=== PATIENT | male | born 1940 | race Caucasian/White ===

== ENCOUNTER 2020-07-22 01:19 | Inpatient (IN) ==
[2020-07-22 02:26] LABS: Mean Corpuscular Hemoglobin 31.4 pg (28.0-33.3)
[2020-07-22 02:27] LABS: Basophils % 0.3 %; Eosinophils # 0.2 K/mcL (0.0-0.6); Hematocrit 45.1 % (37.5-50.1); Hemoglobin 14.4 g/dL (12.9-16.9); Immature Granulocytes % 0.8 % (0-4); Immature Platelets 4.2 % (1.1-6.1); Lymphocytes # 1.6 K/mcL (0.6-4.6); Lymphocytes % 18.4 %; Mean Corpuscular HGB Conc 31.9 g/dL (31.6-35.5); Mean Corpuscular Volume 98.3 fL (83.0-100.0); Mean Platelet Volume 10.1 fL (9.4-12.4); Monocytes # 0.8 K/mcL (0.0-1.3); Monocytes % 9.4 %; Platelet Count 112 K/mcL (140-400); Red Blood Count 4.59 M/mcL (4.19-5.50); Red Cell Distribution Width 14.8 % (11.5-14.5); Segmented Neutrophils % 69.1 %; White Blood Count 8.7 K/mcL (4.3-11.1)
[2020-07-22 02:43] LABS: Alanine Aminotransferase 12 Units/L (7-52); Albumin 3.5 g/dL (3.5-5.7); Albumin/Globulin Ratio 1.3 (1.1-2.2); Alkaline Phosphatase 44 Units/L (34-104); Aspartate Amino Transferase 12 Units/L (13-39); BUN/Creatinine Ratio 15 (6-26); Bilirubin,Total 0.5 mg/dL (0.3-1.0); Blood Urea Nitrogen 12 mg/dL (8-23); Calcium 8.9 mg/dL (8.6-10.3); Carbon Dioxide 33 mEq/L (23-29); Chloride 107 mEq/L (98-107); Globulin 2.7 g/dL (2.4-3.5); Glucose 103 mg/dL (70-105); Osmolality,Calculated 294 (280-300); Potassium 4.3 mEq/L (3.5-5.1); Sodium 142 mEq/L (136-145); Total Protein 6.2 g/dL (6.4-8.9); eGFR For African Americans > 60 (> 60); eGFR For Non-African Americans > 60 (> 60)
[2020-07-22 02:44] LABS: Troponin I < 0.03 ng/mL (< 0.04)
[2020-07-22] MEDS ORDERED: methylPREDNISolone 125 MG/2 ML VIAL IVP ONE (03:12)
[2020-07-22] MEDS ORDERED: Ipratropium/Albuterol Neb 3 ML IH ONE (03:12)
[2020-07-22] MEDS ORDERED: cefTRIAXone 1,000 MG in Water for inj. (sterile) 10 ML IVP ONE (05:12)
[2020-07-22] MEDS ORDERED: Azithromycin 500 MG in 0.9 % Sodium Chloride 250 ML IVPB ONE (05:12)
[2020-07-22] MEDS ORDERED: Naloxone 0.4 MG/ML INJ IVP PRN (07:35)
[2020-07-22] MEDS ORDERED: Ipratropium/Albuterol Neb 3 ML IH PRN (07:38)
[2020-07-22 07:51] LABS: Bilirubin,Urine Negative (Negative); Blood,Urine Negative (Negative); Clarity,Urine Clear (Clear); Color,Urine Light-Yellow (Yellow); Glucose,Urine (UA) Normal (Normal); Ketones,Urine Negative (Negative); Leukocyte Esterase,Urine Negative (Negative); Nitrite,Urine Negative (Negative); Protein,Urine Negative (Neg-Trace); Specific Gravity,Urine 1.014 (1.010-1.025); Urobilinogen,Urine Normal (Normal)
[2020-07-22] MEDS: Spironolactone 25 MG TABLET PO SCH (08:28)
[2020-07-22] MEDS: Finasteride 5 MG TABLET PO SCH (08:29)
[2020-07-22] MEDS: carvediloL 6.25 MG TABLET PO SCH ×2 (08:29→16:42)
[2020-07-22] MEDS: Gabapentin 300 MG CAPSULE PO SCH ×2 (08:29→21:07)
[2020-07-22] MEDS: Primidone 50 MG TABLET PO SCH ×2 (08:29→21:07)
[2020-07-22] MEDS: OLANZapine 5 MG TAB.RAPDIS PO SCH ×2 (08:30→21:06)
[2020-07-22] MEDS: Mirtazapine 15 MG TABLET PO SCH (08:30)
[2020-07-22] MEDS: Nitroglycerin 0.2 MG PATCH.TD24 TD SCH (08:43)
[2020-07-22] MEDS: Nitroglycerin 0.4 MG PATCH.TD24 TD SCH (08:44)
[2020-07-22] MEDS ORDERED: NITROGLYCERIN 0.6 MG TD SCH (09:00)
[2020-07-22] MEDS: Ipratropium 1 PUFF INHALER IH SCH ×3 (10:01→15:21)
[2020-07-22] MEDS: *HR* Heparin 5,000 UNIT/ML VIAL SQ SCH ×2 (15:16→21:06)
[2020-07-23] MEDS: Ipratropium 1 PUFF INHALER IH SCH ×5 (00:19→21:38)
[2020-07-23] MEDS: *HR* Heparin 5,000 UNIT/ML VIAL SQ SCH ×3 (04:38→20:48)
[2020-07-23 04:44] LABS: Basophils % 0.1 %; Hematocrit 42.4 % (37.5-50.1); Hemoglobin 13.8 g/dL (12.9-16.9); Immature Granulocytes % 0.7 % (0-4); Lymphocytes # 1.2 K/mcL (0.6-4.6); Lymphocytes % 10.9 %; Mean Corpuscular HGB Conc 32.5 g/dL (31.6-35.5); Mean Corpuscular Hemoglobin 31.3 pg (28.0-33.3); Mean Corpuscular Volume 96.1 fL (83.0-100.0); Mean Platelet Volume 10.2 fL (9.4-12.4); Monocytes # 0.8 K/mcL (0.0-1.3); Monocytes % 7.1 %; Neutrophils # 9.1 K/mcL (1.6-8.9); Platelet Count 113 K/mcL (140-400); Red Blood Count 4.41 M/mcL (4.19-5.50); Red Cell Distribution Width 14.2 % (11.5-14.5); Segmented Neutrophils % 81.2 %; White Blood Count 11.2 K/mcL (4.3-11.1)
[2020-07-23 04:54] LABS: BUN/Creatinine Ratio 24 (6-26); Blood Urea Nitrogen 18 mg/dL (8-23); Calcium 8.8 mg/dL (8.6-10.3); Carbon Dioxide 30 mEq/L (23-29); Chloride 106 mEq/L (98-107); Glucose 118 mg/dL (70-105); Osmolality,Calculated 289 (280-300); Potassium 4.5 mEq/L (3.5-5.1); Sodium 138 mEq/L (136-145); eGFR For African Americans > 60 (> 60); eGFR For Non-African Americans > 60 (> 60)
[2020-07-23] MEDS: OLANZapine 5 MG TAB.RAPDIS PO SCH ×2 (07:54→20:48)
[2020-07-23] MEDS: carvediloL 6.25 MG TABLET PO SCH ×2 (07:56→15:36)
[2020-07-23] MEDS: Mirtazapine 15 MG TABLET PO SCH (07:56)
[2020-07-23] MEDS: Nitroglycerin 0.4 MG PATCH.TD24 TD SCH (07:57)
[2020-07-23] MEDS: Nitroglycerin 0.2 MG PATCH.TD24 TD SCH (07:58)
[2020-07-23] MEDS: Spironolactone 25 MG TABLET PO SCH (08:00)
[2020-07-23] MEDS: MethylPREDNISolone 40 MG/ML VIAL IVP SCH ×3 (08:00→23:24)
[2020-07-23] MEDS: Finasteride 5 MG TABLET PO SCH (08:00)
[2020-07-23] MEDS: Primidone 50 MG TABLET PO SCH ×2 (08:01→20:49)
[2020-07-23] MEDS: Gabapentin 300 MG CAPSULE PO SCH ×2 (08:01→20:49)
[2020-07-23] MEDS: Azithromycin 500 MG in 0.9 % Sodium Chloride 250 ML IVPB SCH (08:05)
[2020-07-23] MEDS ORDERED: Furosemide 20 MG/2 ML VIAL IVP ONE (08:13)
[2020-07-23] MEDS: Budesonide/Formoterol 160/4.5 1 PUFF INH IH SCH ×2 (10:22→21:39)
[2020-07-23] MEDS: Famotidine 20 MG TABLET PO PRN (20:49)
[2020-07-23] MEDS: Nitroglycerin 0.4 MG TAB.SUBL SL PRN ×3 (20:50→21:19)
[2020-07-23] MEDS ORDERED: Benzonatate 100 MG CAPSULE PO PRN (21:44)
[2020-07-23 22:14] LABS: Alanine Aminotransferase 13 Units/L (7-52); Albumin 3.3 g/dL (3.5-5.7); Albumin/Globulin Ratio 1.3 (1.1-2.2); Alkaline Phosphatase 40 Units/L (34-104); Aspartate Amino Transferase 15 Units/L (13-39); BUN/Creatinine Ratio 28 (6-26); Bilirubin,Total 0.4 mg/dL (0.3-1.0); Blood Urea Nitrogen 26 mg/dL (8-23); Calcium 8.7 mg/dL (8.6-10.3); Carbon Dioxide 27 mEq/L (23-29); Chloride 102 mEq/L (98-107); Globulin 2.5 g/dL (2.4-3.5); Glucose 253 mg/dL (70-105); Osmolality,Calculated 299 (280-300); Potassium 4.7 mEq/L (3.5-5.1); Sodium 138 mEq/L (136-145); Total Protein 5.8 g/dL (6.4-8.9); Troponin I < 0.03 ng/mL (< 0.04); eGFR For African Americans > 60 (> 60); eGFR For Non-African Americans > 60 (> 60)
[2020-07-23 22:33] LABS: Hematocrit 40.7 % (37.5-50.1); Hemoglobin 13.3 g/dL (12.9-16.9); Immature Platelets 4.8 % (1.1-6.1); Mean Corpuscular HGB Conc 32.7 g/dL (31.6-35.5); Mean Corpuscular Hemoglobin 31.4 pg (28.0-33.3); Mean Platelet Volume 10.7 fL (9.4-12.4); Red Blood Count 4.24 M/mcL (4.19-5.50); Red Cell Distribution Width 14.3 % (11.5-14.5); White Blood Count 9.1 K/mcL (4.3-11.1)
[2020-07-24 02:58] LABS: Basophils % 0.1 %; Hematocrit 40.9 % (37.5-50.1); Hemoglobin 13.3 g/dL (12.9-16.9); Immature Granulocytes % 0.6 % (0-4); Lymphocytes # 0.9 K/mcL (0.6-4.6); Mean Corpuscular HGB Conc 32.5 g/dL (31.6-35.5); Mean Corpuscular Volume 95.3 fL (83.0-100.0); Mean Platelet Volume 10.3 fL (9.4-12.4); Monocytes # 0.3 K/mcL (0.0-1.3); Monocytes % 2.8 %; Neutrophils # 9.6 K/mcL (1.6-8.9); Platelet Count 123 K/mcL (140-400); Red Blood Count 4.29 M/mcL (4.19-5.50); Red Cell Distribution Width 14.1 % (11.5-14.5); Segmented Neutrophils % 88.5 %; White Blood Count 10.9 K/mcL (4.3-11.1)
[2020-07-24 03:12] LABS: BUN/Creatinine Ratio 27 (6-26); Blood Urea Nitrogen 23 mg/dL (8-23); Calcium 8.9 mg/dL (8.6-10.3); Carbon Dioxide 28 mEq/L (23-29); Chloride 104 mEq/L (98-107); Glucose 167 mg/dL (70-105); Osmolality,Calculated 293 (280-300); Potassium 4.6 mEq/L (3.5-5.1); Sodium 138 mEq/L (136-145); eGFR For African Americans > 60 (> 60); eGFR For Non-African Americans > 60 (> 60)
[2020-07-24] MEDS: Ipratropium 1 PUFF INHALER IH SCH (03:50)
[2020-07-24] MEDS: *HR* Heparin 5,000 UNIT/ML VIAL SQ SCH ×3 (05:22→21:00)
[2020-07-24] MEDS: Nitroglycerin 0.2 MG PATCH.TD24 TD SCH (08:04)
[2020-07-24] MEDS: Nitroglycerin 0.4 MG PATCH.TD24 TD SCH (08:05)
[2020-07-24] MEDS: Finasteride 5 MG TABLET PO SCH (08:05)
[2020-07-24] MEDS: Mirtazapine 15 MG TABLET PO SCH (08:05)
[2020-07-24] MEDS: Primidone 50 MG TABLET PO SCH ×2 (08:05→21:00)
[2020-07-24] MEDS: Gabapentin 300 MG CAPSULE PO SCH ×2 (08:05→21:00)
[2020-07-24] MEDS: OLANZapine 5 MG TAB.RAPDIS PO SCH ×2 (08:05→20:59)
[2020-07-24] MEDS: Spironolactone 25 MG TABLET PO SCH (08:05)
[2020-07-24] MEDS: Azithromycin 500 MG in 0.9 % Sodium Chloride 250 ML IVPB SCH (08:06)
[2020-07-24] MEDS: MethylPREDNISolone 40 MG/ML VIAL IVP SCH ×2 (08:06→15:02)
[2020-07-24] MEDS: carvediloL 6.25 MG TABLET PO SCH ×2 (08:06→17:00)
[2020-07-24] MEDS: Acetylcysteine 10% 2 ML INHSOL IH SCH ×3 (12:03→19:52)
[2020-07-24] MEDS: Ipratropium/Albuterol Neb 3 ML IH SCH ×5 (12:03→23:23)
[2020-07-24] MEDS: Budesonide/Formoterol 160/4.5 1 PUFF INH IH SCH ×2 (12:04→19:52)
[2020-07-24] MEDS: Furosemide 20 MG/2 ML VIAL IVP SCH (17:00)
[2020-07-25] MEDS: MethylPREDNISolone 40 MG/ML VIAL IVP SCH ×3 (00:27→15:49)
[2020-07-25] MEDS: Ipratropium/Albuterol Neb 3 ML IH SCH ×6 (04:06→23:42)
[2020-07-25] MEDS: Acetylcysteine 10% 2 ML INHSOL IH SCH ×4 (04:06→19:34)
[2020-07-25] MEDS: *HR* Heparin 5,000 UNIT/ML VIAL SQ SCH ×3 (04:58→20:02)
[2020-07-25 05:36] LABS: Basophils % 0.1 %; Hematocrit 41.2 % (37.5-50.1); Hemoglobin 13.4 g/dL (12.9-16.9); Immature Granulocytes % 0.7 % (0-4); Lymphocytes # 0.8 K/mcL (0.6-4.6); Lymphocytes % 6.3 %; Mean Corpuscular HGB Conc 32.5 g/dL (31.6-35.5); Mean Corpuscular Hemoglobin 31.5 pg (28.0-33.3); Mean Corpuscular Volume 96.9 fL (83.0-100.0); Mean Platelet Volume 10.6 fL (9.4-12.4); Monocytes # 0.4 K/mcL (0.0-1.3); Monocytes % 3.6 %; Neutrophils # 10.6 K/mcL (1.6-8.9); Platelet Count 121 K/mcL (140-400); Red Blood Count 4.25 M/mcL (4.19-5.50); Red Cell Distribution Width 14.2 % (11.5-14.5); Segmented Neutrophils % 89.3 %; White Blood Count 11.9 K/mcL (4.3-11.1)
[2020-07-25 05:48] LABS: BUN/Creatinine Ratio 32 (6-26); Blood Urea Nitrogen 30 mg/dL (8-23); Calcium 8.9 mg/dL (8.6-10.3); Carbon Dioxide 29 mEq/L (23-29); Chloride 102 mEq/L (98-107); Glucose 172 mg/dL (70-105); Osmolality,Calculated 298 (280-300); Sodium 139 mEq/L (136-145); Troponin I 0.03 ng/mL (< 0.04); eGFR For African Americans > 60 (> 60); eGFR For Non-African Americans > 60 (> 60)
[2020-07-25] MEDS: Budesonide/Formoterol 160/4.5 1 PUFF INH IH SCH ×2 (07:45→19:35)
[2020-07-25] MEDS: Furosemide 20 MG/2 ML VIAL IVP SCH ×2 (09:18→15:49)
[2020-07-25] MEDS: Nitroglycerin 0.2 MG PATCH.TD24 TD SCH (09:18)
[2020-07-25] MEDS: OLANZapine 5 MG TAB.RAPDIS PO SCH ×2 (09:19→20:03)
[2020-07-25] MEDS: carvediloL 6.25 MG TABLET PO SCH ×2 (09:19→15:49)
[2020-07-25] MEDS: Gabapentin 300 MG CAPSULE PO SCH ×2 (09:19→20:03)
[2020-07-25] MEDS: Azithromycin 500 MG in 0.9 % Sodium Chloride 250 ML IVPB SCH (09:19)
[2020-07-25] MEDS: Nitroglycerin 0.4 MG PATCH.TD24 TD SCH (09:19)
[2020-07-25] MEDS: Mirtazapine 15 MG TABLET PO SCH (09:20)
[2020-07-25] MEDS: Primidone 50 MG TABLET PO SCH ×2 (09:20→20:03)
[2020-07-25] MEDS: Finasteride 5 MG TABLET PO SCH (09:20)
[2020-07-25] MEDS: Spironolactone 25 MG TABLET PO SCH (09:20)
[2020-07-26] MEDS: MethylPREDNISolone 40 MG/ML VIAL IVP SCH ×3 (00:13→17:06)
[2020-07-26] MEDS: Acetylcysteine 10% 2 ML INHSOL IH SCH ×4 (04:06→19:58)
[2020-07-26] MEDS: Ipratropium/Albuterol Neb 3 ML IH SCH ×6 (04:06→23:05)
[2020-07-26] MEDS: *HR* Heparin 5,000 UNIT/ML VIAL SQ SCH ×3 (05:24→20:15)
[2020-07-26 05:45] LABS: Basophils % 0.2 %; Hematocrit 45.4 % (37.5-50.1); Hemoglobin 14.9 g/dL (12.9-16.9); Immature Granulocytes % 0.9 % (0-4); Lymphocytes # 0.6 K/mcL (0.6-4.6); Mean Corpuscular HGB Conc 32.8 g/dL (31.6-35.5); Mean Corpuscular Volume 97.4 fL (83.0-100.0); Mean Platelet Volume 10.5 fL (9.4-12.4); Monocytes # 0.4 K/mcL (0.0-1.3); Neutrophils # 10.6 K/mcL (1.6-8.9); Platelet Count 125 K/mcL (140-400); Red Blood Count 4.66 M/mcL (4.19-5.50); Red Cell Distribution Width 14.1 % (11.5-14.5); Segmented Neutrophils % 90.9 %; White Blood Count 11.7 K/mcL (4.3-11.1)
[2020-07-26 06:04] LABS: BUN/Creatinine Ratio 30 (6-26); Blood Urea Nitrogen 31 mg/dL (8-23); Calcium 9.1 mg/dL (8.6-10.3); Carbon Dioxide 33 mEq/L (23-29); Chloride 99 mEq/L (98-107); Glucose 151 mg/dL (70-105); Osmolality,Calculated 295 (280-300); Sodium 138 mEq/L (136-145); eGFR For African Americans > 60 (> 60); eGFR For Non-African Americans > 60 (> 60)
[2020-07-26] MEDS: Budesonide/Formoterol 160/4.5 1 PUFF INH IH SCH ×2 (07:35→19:58)
[2020-07-26] MEDS: Azithromycin 500 MG in 0.9 % Sodium Chloride 250 ML IVPB SCH (08:01)
[2020-07-26] MEDS: Furosemide 20 MG/2 ML VIAL IVP SCH ×2 (08:01→17:06)
[2020-07-26] MEDS: Primidone 50 MG TABLET PO SCH ×2 (08:02→20:16)
[2020-07-26] MEDS: Mirtazapine 15 MG TABLET PO SCH (08:03)
[2020-07-26] MEDS: Finasteride 5 MG TABLET PO SCH (08:03)
[2020-07-26] MEDS: OLANZapine 5 MG TAB.RAPDIS PO SCH ×2 (08:03→20:15)
[2020-07-26] MEDS: Spironolactone 25 MG TABLET PO SCH (08:03)
[2020-07-26] MEDS: Gabapentin 300 MG CAPSULE PO SCH ×2 (08:03→20:15)
[2020-07-26] MEDS: carvediloL 6.25 MG TABLET PO SCH ×2 (08:03→17:05)
[2020-07-26] MEDS: Nitroglycerin 0.2 MG PATCH.TD24 TD SCH (08:04)
[2020-07-26] MEDS: Nitroglycerin 0.4 MG PATCH.TD24 TD SCH (08:04)
[2020-07-26] MEDS ORDERED: Melatonin 3 MG TABLET PO PRN (18:35)
[2020-07-26] MEDS: Artificial Tears SOLN 15 ML BOTTLE BOTH EYES SCH (20:15)
[2020-07-26] MEDS: Saline Nasal Spray 44 ML BOTTLE NS PRN (20:15)
[2020-07-27 02:12] LABS: Hematocrit 44.2 % (37.5-50.1); Hemoglobin 14.1 g/dL (12.9-16.9); Mean Corpuscular HGB Conc 31.9 g/dL (31.6-35.5); Mean Corpuscular Hemoglobin 30.9 pg (28.0-33.3); Mean Corpuscular Volume 96.7 fL (83.0-100.0); Mean Platelet Volume 10.7 fL (9.4-12.4); Platelet Count 123 K/mcL (140-400); Red Blood Count 4.57 M/mcL (4.19-5.50); White Blood Count 11.6 K/mcL (4.3-11.1)
[2020-07-27 02:30] LABS: BUN/Creatinine Ratio 34 (6-26); Blood Urea Nitrogen 35 mg/dL (8-23); Carbon Dioxide 32 mEq/L (23-29); Chloride 100 mEq/L (98-107); Glucose 144 mg/dL (70-105); Magnesium 2.3 mg/dL (1.6-2.6); Osmolality,Calculated 297 (280-300); Phosphorous 3.2 mg/dL (2.7-4.5); Potassium 4.4 mEq/L (3.5-5.1); Sodium 138 mEq/L (136-145); eGFR For African Americans > 60 (> 60); eGFR For Non-African Americans > 60 (> 60)
[2020-07-27] MEDS: Ipratropium/Albuterol Neb 3 ML IH SCH ×6 (03:50→23:41)
[2020-07-27] MEDS: MethylPREDNISolone 40 MG/ML VIAL IVP SCH ×2 (05:13→16:53)
[2020-07-27] MEDS: *HR* Heparin 5,000 UNIT/ML VIAL SQ SCH ×3 (05:14→20:35)
[2020-07-27] MEDS: Budesonide/Formoterol 160/4.5 1 PUFF INH IH SCH ×2 (07:42→19:37)
[2020-07-27] MEDS: Acetylcysteine 10% 2 ML INHSOL IH SCH ×3 (07:42→19:36)
[2020-07-27] MEDS: Furosemide 20 MG/2 ML VIAL IVP SCH ×2 (08:43→16:53)
[2020-07-27] MEDS: Multivit/Ca/Min/Fe/FA 1 TAB TABLET PO SCH (08:43)
[2020-07-27] MEDS: OLANZapine 5 MG TAB.RAPDIS PO SCH ×2 (08:44→20:35)
[2020-07-27] MEDS: Primidone 50 MG TABLET PO SCH ×2 (08:44→20:35)
[2020-07-27] MEDS: Finasteride 5 MG TABLET PO SCH (08:44)
[2020-07-27] MEDS: Azithromycin 250 MG TABLET PO SCH (08:44)
[2020-07-27] MEDS: Gabapentin 300 MG CAPSULE PO SCH ×2 (08:44→20:35)
[2020-07-27] MEDS: Spironolactone 25 MG TABLET PO SCH (08:44)
[2020-07-27] MEDS: Mirtazapine 15 MG TABLET PO SCH (08:45)
[2020-07-27] MEDS: Nitroglycerin 0.2 MG PATCH.TD24 TD SCH (08:45)
[2020-07-27] MEDS: carvediloL 6.25 MG TABLET PO SCH ×2 (08:45→16:53)
[2020-07-27] MEDS: Nitroglycerin 0.4 MG PATCH.TD24 TD SCH (08:45)
[2020-07-27] MEDS: Artificial Tears SOLN 15 ML BOTTLE BOTH EYES SCH ×2 (08:46→20:35)
[2020-07-27] MEDS: Saline Nasal Spray 44 ML BOTTLE NS PRN (20:36)
[2020-07-28] MEDS ORDERED: polyethylene glycoL 3350 17 GM POWD.PACK PO PRN (03:33)
[2020-07-28] MEDS: Ipratropium/Albuterol Neb 3 ML IH SCH ×6 (03:39→23:19)
[2020-07-28] MEDS: Acetylcysteine 10% 2 ML INHSOL IH SCH ×4 (03:39→19:59)
[2020-07-28 04:16] LABS: Hematocrit 45.8 % (37.5-50.1); Hemoglobin 14.7 g/dL (12.9-16.9); Mean Corpuscular HGB Conc 32.1 g/dL (31.6-35.5); Mean Corpuscular Hemoglobin 30.3 pg (28.0-33.3); Mean Corpuscular Volume 94.4 fL (83.0-100.0); Mean Platelet Volume 10.6 fL (9.4-12.4); Platelet Count 107 K/mcL (140-400); Red Blood Count 4.85 M/mcL (4.19-5.50); Red Cell Distribution Width 13.9 % (11.5-14.5); White Blood Count 16.4 K/mcL (4.3-11.1)
[2020-07-28 04:26] LABS: BUN/Creatinine Ratio 42 (6-26); Blood Urea Nitrogen 37 mg/dL (8-23); Calcium 8.9 mg/dL (8.6-10.3); Carbon Dioxide 32 mEq/L (23-29); Chloride 98 mEq/L (98-107); Glucose 152 mg/dL (70-105); Magnesium 2.3 mg/dL (1.6-2.6); Osmolality,Calculated 296 (280-300); Phosphorous 3.6 mg/dL (2.7-4.5); Potassium 4.3 mEq/L (3.5-5.1); Sodium 137 mEq/L (136-145); eGFR For African Americans > 60 (> 60); eGFR For Non-African Americans > 60 (> 60)
[2020-07-28] MEDS: *HR* Heparin 5,000 UNIT/ML VIAL SQ SCH ×3 (05:12→21:04)
[2020-07-28] MEDS: Budesonide/Formoterol 160/4.5 1 PUFF INH IH SCH ×2 (07:54→20:09)
[2020-07-28] MEDS ORDERED: predniSONE 20 MG TABLET PO SCH (09:00)
[2020-07-28] MEDS: MethylPREDNISolone 40 MG/ML VIAL IVP SCH ×2 (09:36→16:51)
[2020-07-28] MEDS: Furosemide 20 MG/2 ML VIAL IVP SCH ×2 (09:36→16:52)
[2020-07-28] MEDS: Nitroglycerin 0.4 MG PATCH.TD24 TD SCH (09:36)
[2020-07-28] MEDS: Nitroglycerin 0.2 MG PATCH.TD24 TD SCH (09:36)
[2020-07-28] MEDS: Multivit/Ca/Min/Fe/FA 1 TAB TABLET PO SCH (09:37)
[2020-07-28] MEDS: carvediloL 6.25 MG TABLET PO SCH ×2 (09:37→16:52)
[2020-07-28] MEDS: Spironolactone 25 MG TABLET PO SCH (09:37)
[2020-07-28] MEDS: OLANZapine 5 MG TAB.RAPDIS PO SCH ×2 (09:37→21:04)
[2020-07-28] MEDS: Azithromycin 250 MG TABLET PO SCH (09:37)
[2020-07-28] MEDS: Gabapentin 300 MG CAPSULE PO SCH ×2 (09:37→21:05)
[2020-07-28] MEDS: Mirtazapine 15 MG TABLET PO SCH (09:37)
[2020-07-28] MEDS: Finasteride 5 MG TABLET PO SCH (09:38)
[2020-07-28] MEDS: Primidone 50 MG TABLET PO SCH ×2 (09:38→21:05)
[2020-07-28] MEDS: Artificial Tears SOLN 15 ML BOTTLE BOTH EYES SCH ×2 (09:38→21:05)
[2020-07-28] MEDS: Famotidine 20 MG TABLET PO PRN (12:02)
[2020-07-28] MEDS ORDERED: Perflutren Lipid Microsphere 1.3 ML in 0.9 % Sodium Chloride 8.7 ML IVP PRN (16:11)
[2020-07-29] MEDS: Ipratropium/Albuterol Neb 3 ML IH SCH ×7 (03:35→22:43)
[2020-07-29] MEDS: Acetylcysteine 10% 2 ML INHSOL IH SCH ×4 (03:35→22:43)
[2020-07-29] MEDS: MethylPREDNISolone 40 MG/ML VIAL IVP SCH ×2 (05:28→17:07)
[2020-07-29] MEDS: *HR* Heparin 5,000 UNIT/ML VIAL SQ SCH ×2 (05:28→14:26)
[2020-07-29 05:54] LABS: Basophils % 0.2 %; Hematocrit 48.1 % (37.5-50.1); Hemoglobin 15.4 g/dL (12.9-16.9); Immature Granulocytes % 1.4 % (0-4); Lymphocytes # 0.6 K/mcL (0.6-4.6); Lymphocytes % 3.8 %; Mean Corpuscular Hemoglobin 30.1 pg (28.0-33.3); Mean Corpuscular Volume 94.1 fL (83.0-100.0); Mean Platelet Volume 11.1 fL (9.4-12.4); Monocytes # 0.8 K/mcL (0.0-1.3); Monocytes % 5.2 %; Platelet Count 105 K/mcL (140-400); Red Blood Count 5.11 M/mcL (4.19-5.50); Red Cell Distribution Width 13.7 % (11.5-14.5); Segmented Neutrophils % 89.4 %; White Blood Count 14.6 K/mcL (4.3-11.1)
[2020-07-29 06:10] LABS: BUN/Creatinine Ratio 45 (6-26); Blood Urea Nitrogen 42 mg/dL (8-23); Carbon Dioxide 33 mEq/L (23-29); Chloride 96 mEq/L (98-107); Glucose 114 mg/dL (70-105); Magnesium 2.6 mg/dL (1.6-2.6); Osmolality,Calculated 293 (280-300); Phosphorous 3.4 mg/dL (2.7-4.5); Potassium 4.4 mEq/L (3.5-5.1); Sodium 136 mEq/L (136-145); eGFR For African Americans > 60 (> 60); eGFR For Non-African Americans > 60 (> 60)
[2020-07-29] MEDS: Multivit/Ca/Min/Fe/FA 1 TAB TABLET PO SCH (07:43)
[2020-07-29] MEDS: Spironolactone 25 MG TABLET PO SCH (07:43)
[2020-07-29] MEDS: OLANZapine 5 MG TAB.RAPDIS PO SCH (07:43)
[2020-07-29] MEDS: Azithromycin 250 MG TABLET PO SCH (07:43)
[2020-07-29] MEDS: Primidone 50 MG TABLET PO SCH (07:43)
[2020-07-29] MEDS: Gabapentin 300 MG CAPSULE PO SCH (07:43)
[2020-07-29] MEDS: Finasteride 5 MG TABLET PO SCH (07:44)
[2020-07-29] MEDS: Mirtazapine 15 MG TABLET PO SCH (07:44)
[2020-07-29] MEDS: carvediloL 6.25 MG TABLET PO SCH ×2 (07:44→17:06)
[2020-07-29] MEDS: Nitroglycerin 0.2 MG PATCH.TD24 TD SCH (07:45)
[2020-07-29] MEDS: Furosemide 20 MG/2 ML VIAL IVP SCH ×2 (07:45→17:06)
[2020-07-29] MEDS: Nitroglycerin 0.4 MG PATCH.TD24 TD SCH (07:45)
[2020-07-29] MEDS: Artificial Tears SOLN 15 ML BOTTLE BOTH EYES SCH (07:55)
[2020-07-29] MEDS: Budesonide/Formoterol 160/4.5 1 PUFF INH IH SCH ×2 (08:27→22:43)
[2020-07-29] MEDS ORDERED: Ipratropium/Albuterol Neb 3 ML IH PRN (18:22)
[2020-07-30] MEDS: Gabapentin 300 MG CAPSULE PO SCH ×3 (00:21→20:51)
[2020-07-30] MEDS: OLANZapine 5 MG TAB.RAPDIS PO SCH ×3 (00:22→20:51)
[2020-07-30] MEDS: Artificial Tears SOLN 15 ML BOTTLE BOTH EYES SCH ×3 (00:32→20:51)
[2020-07-30] MEDS: Primidone 50 MG TABLET PO SCH ×3 (00:34→20:51)
[2020-07-30 01:15] LABS: Basophils # 0.1 K/mcL (0.0-0.2); Basophils % 0.5 %; Hematocrit 47.6 % (37.5-50.1); Hemoglobin 15.8 g/dL (12.9-16.9); Lymphocytes # 0.5 K/mcL (0.6-4.6); Lymphocytes % 4.1 %; Mean Corpuscular HGB Conc 33.2 g/dL (31.6-35.5); Mean Corpuscular Hemoglobin 31.3 pg (28.0-33.3); Mean Corpuscular Volume 94.3 fL (83.0-100.0); Monocytes # 0.6 K/mcL (0.0-1.3); Monocytes % 4.5 %; Neutrophils # 11.7 K/mcL (1.6-8.9); Platelet Count 107 K/mcL (140-400); Red Blood Count 5.05 M/mcL (4.19-5.50); Red Cell Distribution Width 13.6 % (11.5-14.5); Segmented Neutrophils % 88.9 %; White Blood Count 13.2 K/mcL (4.3-11.1)
[2020-07-30 01:30] LABS: BUN/Creatinine Ratio 51 (6-26); Blood Urea Nitrogen 45 mg/dL (8-23); Carbon Dioxide 31 mEq/L (23-29); Chloride 94 mEq/L (98-107); Glucose 137 mg/dL (70-105); Magnesium 2.3 mg/dL (1.6-2.6); Osmolality,Calculated 288 (280-300); Phosphorous 2.9 mg/dL (2.7-4.5); Potassium 4.6 mEq/L (3.5-5.1); Sodium 132 mEq/L (136-145); eGFR For African Americans > 60 (> 60); eGFR For Non-African Americans > 60 (> 60)
[2020-07-30] MEDS: Ipratropium/Albuterol Neb 3 ML IH SCH ×6 (03:06→22:55)
[2020-07-30] MEDS: Acetylcysteine 10% 2 ML INHSOL IH SCH ×4 (03:06→22:53)
[2020-07-30] MEDS: *HR* Enoxaparin 40 MG/0.4 ML SYRINGE SQ SCH (06:59)
[2020-07-30] MEDS: Spironolactone 25 MG TABLET PO SCH (08:01)
[2020-07-30] MEDS: Finasteride 5 MG TABLET PO SCH (08:02)
[2020-07-30] MEDS: Multivit/Ca/Min/Fe/FA 1 TAB TABLET PO SCH (08:02)
[2020-07-30] MEDS: Azithromycin 250 MG TABLET PO SCH (08:03)
[2020-07-30] MEDS: Mirtazapine 15 MG TABLET PO SCH (08:03)
[2020-07-30] MEDS: Nitroglycerin 0.4 MG PATCH.TD24 TD SCH (08:04)
[2020-07-30] MEDS: carvediloL 6.25 MG TABLET PO SCH ×2 (08:04→17:22)
[2020-07-30] MEDS: Nitroglycerin 0.2 MG PATCH.TD24 TD SCH (08:04)
[2020-07-30] MEDS: Budesonide/Formoterol 160/4.5 1 PUFF INH IH SCH ×2 (08:19→22:54)
[2020-07-30] MEDS ORDERED: MethylPREDNISolone 40 MG/ML VIAL IVP SCH (09:00)
[2020-07-31] MEDS: Acetylcysteine 10% 2 ML INHSOL IH SCH ×4 (03:26→19:43)
[2020-07-31] MEDS: Ipratropium/Albuterol Neb 3 ML IH SCH ×6 (03:27→23:12)
[2020-07-31] MEDS: *HR* Enoxaparin 40 MG/0.4 ML SYRINGE SQ SCH (05:23)
[2020-07-31 05:44] LABS: Basophils # 0.1 K/mcL (0.0-0.2); Basophils % 0.5 %; Eosinophils % 0.1 %; Hematocrit 48.8 % (37.5-50.1); Hemoglobin 15.8 g/dL (12.9-16.9); Immature Granulocytes % 2.6 % (0-4); Lymphocytes # 0.7 K/mcL (0.6-4.6); Lymphocytes % 6.3 %; Mean Corpuscular HGB Conc 32.4 g/dL (31.6-35.5); Mean Corpuscular Hemoglobin 30.9 pg (28.0-33.3); Mean Corpuscular Volume 95.3 fL (83.0-100.0); Mean Platelet Volume 11.5 fL (9.4-12.4); Monocytes # 0.9 K/mcL (0.0-1.3); Monocytes % 7.3 %; Red Blood Count 5.12 M/mcL (4.19-5.50); Red Cell Distribution Width 13.5 % (11.5-14.5); Segmented Neutrophils % 83.2 %; White Blood Count 11.7 K/mcL (4.3-11.1)
[2020-07-31 05:45] LABS: Neutrophils # 9.7 K/mcL (1.6-8.9); Platelet Count 94 K/mcL (140-400)
[2020-07-31 06:40] LABS: BUN/Creatinine Ratio 36 (6-26); Blood Urea Nitrogen 31 mg/dL (8-23); Calcium 8.7 mg/dL (8.6-10.3); Carbon Dioxide 36 mEq/L (23-29); Chloride 95 mEq/L (98-107); Glucose 111 mg/dL (70-105); Magnesium 2.2 mg/dL (1.6-2.6); Osmolality,Calculated 287 (280-300); Phosphorous 2.6 mg/dL (2.7-4.5); Potassium 4.4 mEq/L (3.5-5.1); Sodium 135 mEq/L (136-145); eGFR For African Americans > 60 (> 60); eGFR For Non-African Americans > 60 (> 60)
[2020-07-31] MEDS: Budesonide/Formoterol 160/4.5 1 PUFF INH IH SCH ×2 (07:22→19:43)
[2020-07-31] MEDS: Finasteride 5 MG TABLET PO SCH (08:49)
[2020-07-31] MEDS: Gabapentin 300 MG CAPSULE PO SCH ×2 (08:49→20:23)
[2020-07-31] MEDS: OLANZapine 5 MG TAB.RAPDIS PO SCH ×2 (08:50→20:23)
[2020-07-31] MEDS: Multivit/Ca/Min/Fe/FA 1 TAB TABLET PO SCH (08:50)
[2020-07-31] MEDS: predniSONE 20 MG TABLET PO SCH (08:50)
[2020-07-31] MEDS: Mirtazapine 15 MG TABLET PO SCH (08:50)
[2020-07-31] MEDS: carvediloL 6.25 MG TABLET PO SCH ×2 (08:50→16:31)
[2020-07-31] MEDS: Spironolactone 25 MG TABLET PO SCH (08:50)
[2020-07-31] MEDS: Primidone 50 MG TABLET PO SCH ×2 (08:50→20:23)
[2020-07-31] MEDS ORDERED: lisinopriL 5 MG TABLET PO SCH (09:00)
[2020-07-31] MEDS: Nitroglycerin 0.2 MG PATCH.TD24 TD SCH (09:01)
[2020-07-31] MEDS: Azithromycin 250 MG TABLET PO SCH (09:01)
[2020-07-31] MEDS ORDERED: Ondansetron 4 MG/2 ML VIAL IVP PRN (09:18)
[2020-07-31] MEDS: Nitroglycerin 0.4 MG PATCH.TD24 TD SCH (10:07)
[2020-07-31] MEDS: Artificial Tears SOLN 15 ML BOTTLE BOTH EYES SCH ×2 (10:07→20:24)
[2020-07-31] MEDS: Furosemide 20 MG TABLET PO SCH (17:17)
[2020-08-01] MEDS: Acetylcysteine 10% 2 ML INHSOL IH SCH ×2 (03:39→07:34)
[2020-08-01] MEDS: Ipratropium/Albuterol Neb 3 ML IH SCH ×3 (03:39→11:38)
[2020-08-01] MEDS: *HR* Enoxaparin 40 MG/0.4 ML SYRINGE SQ SCH (06:23)
[2020-08-01 07:30] VITALS: BP 120/65
[2020-08-01] MEDS: Budesonide/Formoterol 160/4.5 1 PUFF INH IH SCH (07:35)
[2020-08-01] MEDS ORDERED: lisinopriL 5 MG TABLET PO SCH (09:00)
[2020-08-01] MEDS: Nitroglycerin 0.4 MG PATCH.TD24 TD SCH (09:32)
[2020-08-01] MEDS: Multivit/Ca/Min/Fe/FA 1 TAB TABLET PO SCH (09:33)
[2020-08-01] MEDS: Gabapentin 300 MG CAPSULE PO SCH (09:33)
[2020-08-01] MEDS: Furosemide 20 MG TABLET PO SCH (09:33)
[2020-08-01] MEDS: Spironolactone 25 MG TABLET PO SCH (09:33)
[2020-08-01] MEDS: OLANZapine 5 MG TAB.RAPDIS PO SCH (09:34)
[2020-08-01] MEDS: Mirtazapine 15 MG TABLET PO SCH (09:34)
[2020-08-01] MEDS: Primidone 50 MG TABLET PO SCH (09:34)
[2020-08-01] MEDS: Azithromycin 250 MG TABLET PO SCH (09:35)
[2020-08-01] MEDS: carvediloL 6.25 MG TABLET PO SCH (09:35)
[2020-08-01] MEDS: predniSONE 20 MG TABLET PO SCH (09:35)
[2020-08-01] MEDS: Finasteride 5 MG TABLET PO SCH (09:35)
[2020-08-01] MEDS: Artificial Tears SOLN 15 ML BOTTLE BOTH EYES SCH (09:36)
[2020-08-01] MEDS: Nitroglycerin 0.2 MG PATCH.TD24 TD SCH (10:26)
== END 2020-08-01 12:53 | DRG 190 ==
LOC: EMEROOARM 01:19 → 3BNU 01:19 → SUATTDRO 06:54 → 3BNU 07:51 → SUATTDRO 07-23 14:52
PROVIDERS: ADMIT Student in an Organized Health Care Education/Training Program; ATTEND Internal Medicine

== ENCOUNTER 2020-08-01 15:28 | Inpatient (IN) ==
[2020-08-01] MEDS ORDERED: Ipratropium/Albuterol Neb 3 ML IH ONE (15:56)
[2020-08-01 16:13] LABS: VBG HCO3 31 mEq/L (21-27); VBG PCO2 47 mmHg (41-51); VBG PH 7.42 pH Units (7.32-7.42); VBG PO2 111 mmHg (25-50)
[2020-08-01 16:14] LABS: Basophils # 0.2 K/mcL (0.0-0.2); Basophils % 0.9 %; Eosinophils % 0.1 %; Hematocrit 44.6 % (37.5-50.1); Hemoglobin 14.7 g/dL (12.9-16.9); Immature Platelets 8.3 % (1.1-6.1); Lymphocytes # 0.7 K/mcL (0.6-4.6); Lymphocytes % 4.2 %; Mean Corpuscular Hemoglobin 30.8 pg (28.0-33.3); Mean Corpuscular Volume 93.3 fL (83.0-100.0); Mean Platelet Volume 11.2 fL (9.4-12.4); Monocytes # 0.5 K/mcL (0.0-1.3); Monocytes % 3.2 %; Neutrophils # 13.9 K/mcL (1.6-8.9); Platelet Count 104 K/mcL (140-400); Red Blood Count 4.78 M/mcL (4.19-5.50); Red Cell Distribution Width 14.3 % (11.5-14.5); Segmented Neutrophils % 87.6 %; White Blood Count 15.9 K/mcL (4.3-11.1)
[2020-08-01 16:37] LABS: BUN/Creatinine Ratio 31 (6-26); Blood Urea Nitrogen 37 mg/dL (8-23); Calcium 8.4 mg/dL (8.6-10.3); Carbon Dioxide 31 mEq/L (23-29); Chloride 91 mEq/L (98-107); Glucose 187 mg/dL (70-105); Osmolality,Calculated 276 (280-300); Potassium 5.5 mEq/L (3.5-5.1); Sodium 126 mEq/L (136-145); Troponin I 0.03 ng/mL (< 0.04); eGFR For African Americans > 60 (> 60); eGFR For Non-African Americans 58 (> 60)
[2020-08-01] MEDS ORDERED: Naloxone 0.4 MG/ML INJ IVP PRN (17:02)
[2020-08-01] MEDS ORDERED: Ondansetron 4 MG/2 ML VIAL IVP PRN (17:02)
[2020-08-01] MEDS ORDERED: Acetaminophen 325 MG TABLET PO PRN (17:02)
[2020-08-01 18:07] LABS: ABG Base Excess 4 mEq/L (-2 to 3); ABG HCO3 31 mEq/L (21-27); ABG Oxygen Saturation 95 % (95-98); ABG PCO2 52 mmHg (35-45); ABG PH 7.38 pH Units (7.32-7.45); ABG PO2 77 mmHg (85-104); ABG TCO2 32 mEq/L (20-26)
[2020-08-01] MEDS ORDERED: Furosemide 40 MG/4 ML VIAL IVP ONE (18:28)
[2020-08-01] MEDS ORDERED: Ipratropium/Albuterol Neb 3 ML IH PRN (18:57)
[2020-08-01] MEDS ORDERED: Saline Nasal Spray 44 ML BOTTLE NS PRN (18:59)
[2020-08-01] MEDS ORDERED: Nitroglycerin 0.4 MG TAB.SUBL SL PRN (19:05)
[2020-08-01] MEDS: Budesonide/Formoterol 160/4.5 1 PUFF INH IH SCH (20:04)
[2020-08-01] MEDS: Ipratropium/Albuterol Neb 3 ML IH SCH (20:04)
[2020-08-01] MEDS: MethylPREDNISolone 40 MG/ML VIAL IVP SCH (23:46)
[2020-08-02] MEDS: Artificial Tears SOLN 15 ML BOTTLE BOTH EYES SCH ×3 (00:04→22:20)
[2020-08-02] MEDS: Ipratropium/Albuterol Neb 3 ML IH SCH ×7 (00:14→23:08)
[2020-08-02 04:35] LABS: Basophils # 0.1 K/mcL (0.0-0.2); Basophils % 0.5 %; Hemoglobin 15.7 g/dL (12.9-16.9); Lymphocytes # 0.6 K/mcL (0.6-4.6); Lymphocytes % 3.1 %; Mean Corpuscular HGB Conc 32.7 g/dL (31.6-35.5); Mean Corpuscular Hemoglobin 30.5 pg (28.0-33.3); Mean Corpuscular Volume 93.2 fL (83.0-100.0); Mean Platelet Volume 10.8 fL (9.4-12.4); Monocytes # 0.5 K/mcL (0.0-1.3); Monocytes % 2.2 %; Neutrophils # 19.2 K/mcL (1.6-8.9); Platelet Count 104 K/mcL (140-400); Red Blood Count 5.15 M/mcL (4.19-5.50); Segmented Neutrophils % 92.2 %; White Blood Count 20.8 K/mcL (4.3-11.1)
[2020-08-02 04:38] LABS: INR 1.1; Prothrombin Time 12.7 Seconds (9.4-12.1)
[2020-08-02 04:59] LABS: Alanine Aminotransferase 25 Units/L (7-52); Albumin 3.2 g/dL (3.5-5.7); Albumin/Globulin Ratio 0.9 (1.1-2.2); Alkaline Phosphatase 54 Units/L (34-104); Aspartate Amino Transferase 22 Units/L (13-39); BUN/Creatinine Ratio 32 (6-26); Bilirubin,Total 1.1 mg/dL (0.3-1.0); Blood Urea Nitrogen 31 mg/dL (8-23); Calcium 8.8 mg/dL (8.6-10.3); Carbon Dioxide 31 mEq/L (23-29); Chloride 90 mEq/L (98-107); Globulin 3.5 g/dL (2.4-3.5); Glucose 140 mg/dL (70-105); Magnesium 2.2 mg/dL (1.6-2.6); Osmolality,Calculated 275 (280-300); Phosphorous 4.5 mg/dL (2.7-4.5); Potassium 5.3 mEq/L (3.5-5.1); Sodium 128 mEq/L (136-145); Total Protein 6.7 g/dL (6.4-8.9); eGFR For African Americans > 60 (> 60); eGFR For Non-African Americans > 60 (> 60)
[2020-08-02] MEDS ORDERED: *HR* LORazepam 2 MG/ML VIAL IVP ONE (06:20)
[2020-08-02] MEDS: Budesonide/Formoterol 160/4.5 1 PUFF INH IH SCH ×2 (07:17→19:49)
[2020-08-02] MEDS ORDERED: carvediloL 6.25 MG TABLET PO SCH (08:00)
[2020-08-02] MEDS ORDERED: Finasteride 5 MG TABLET PO SCH (09:00)
[2020-08-02] MEDS: Primidone 50 MG TABLET PO SCH (09:16)
[2020-08-02] MEDS: Mirtazapine 15 MG TABLET PO SCH (09:16)
[2020-08-02] MEDS: Multivit/Ca/Min/Fe/FA 1 TAB TABLET PO SCH (09:19)
[2020-08-02] MEDS: Azithromycin 250 MG TABLET PO SCH (09:25)
[2020-08-02] MEDS: MethylPREDNISolone 40 MG/ML VIAL IVP SCH (09:28)
[2020-08-02] MEDS: NITROGLYCERIN 0.6 MG TD SCH (10:57)
[2020-08-02 11:29] LABS: ABG Base Excess 4 mEq/L (-2 to 3); ABG HCO3 30 mEq/L (21-27); ABG Oxygen Saturation 97 % (95-98); ABG PCO2 49 mmHg (35-45); ABG PO2 92 mmHg (85-104); ABG TCO2 32 mEq/L (20-26)
[2020-08-02] MEDS ORDERED: Furosemide 40 MG/4 ML VIAL IVP ONE (18:05)
[2020-08-02] MEDS: Benzonatate 100 MG CAPSULE PO PRN (20:15)
[2020-08-03 02:56] LABS: Basophils # 0.1 K/mcL (0.0-0.2); Basophils % 0.4 %; Hematocrit 48.9 % (37.5-50.1); Hemoglobin 16.1 g/dL (12.9-16.9); Immature Granulocytes % 1.9 % (0-4); Lymphocytes # 0.7 K/mcL (0.6-4.6); Lymphocytes % 4.3 %; Mean Corpuscular HGB Conc 32.9 g/dL (31.6-35.5); Mean Platelet Volume 11.1 fL (9.4-12.4); Monocytes # 0.5 K/mcL (0.0-1.3); Monocytes % 3.2 %; Neutrophils # 14.6 K/mcL (1.6-8.9); Platelet Count 114 K/mcL (140-400); Red Cell Distribution Width 13.5 % (11.5-14.5); Segmented Neutrophils % 90.2 %; White Blood Count 16.2 K/mcL (4.3-11.1)
[2020-08-03 03:04] LABS: BUN/Creatinine Ratio 38 (6-26); Blood Urea Nitrogen 33 mg/dL (8-23); Calcium 8.8 mg/dL (8.6-10.3); Carbon Dioxide 31 mEq/L (23-29); Chloride 91 mEq/L (98-107); Glucose 111 mg/dL (70-105); Osmolality,Calculated 276 (280-300); Potassium 4.6 mEq/L (3.5-5.1); Sodium 129 mEq/L (136-145); eGFR For African Americans > 60 (> 60); eGFR For Non-African Americans > 60 (> 60)
[2020-08-03] MEDS: Ipratropium/Albuterol Neb 3 ML IH SCH ×7 (03:53→23:23)
[2020-08-03] MEDS: Budesonide/Formoterol 160/4.5 1 PUFF INH IH SCH ×2 (07:17→19:50)
[2020-08-03] MEDS: Multivit/Ca/Min/Fe/FA 1 TAB TABLET PO SCH (09:15)
[2020-08-03] MEDS: Mirtazapine 15 MG TABLET PO SCH (09:16)
[2020-08-03] MEDS: Spironolactone 25 MG TABLET PO SCH (09:16)
[2020-08-03] MEDS: predniSONE 20 MG TABLET PO SCH (09:16)
[2020-08-03] MEDS: Azithromycin 250 MG TABLET PO SCH (09:16)
[2020-08-03] MEDS: Primidone 50 MG TABLET PO SCH (09:18)
[2020-08-03] MEDS: *HR* LORazepam Oral Conc 2 MG/ML SL PRN ×2 (09:45→17:51)
[2020-08-03] MEDS: Benzonatate 100 MG CAPSULE PO PRN ×2 (09:48→16:41)
[2020-08-03 10:11] LABS: ABG Base Excess 5 mEq/L (-2 to 3); ABG HCO3 30 mEq/L (21-27); ABG Oxygen Saturation 93 % (95-98); ABG PCO2 46 mmHg (35-45); ABG PH 7.43 pH Units (7.32-7.45); ABG PO2 66 mmHg (85-104); ABG TCO2 32 mEq/L (20-26)
[2020-08-03] MEDS: Artificial Tears SOLN 15 ML BOTTLE BOTH EYES SCH (12:30)
[2020-08-03] MEDS: NITROGLYCERIN 0.6 MG TD SCH (12:30)
[2020-08-03 17:16] LABS: Bacteria,Urine Few per hpf (None-Few); Bilirubin,Urine Negative (Negative); Blood,Urine Large (Negative); Clarity,Urine Clear (Clear); Color,Urine Yellow (Yellow); Glucose,Urine (UA) Normal (Normal); Ketones,Urine Negative (Negative); Leukocyte Esterase,Urine Negative (Negative); Mucus,Urine Few per lpf (None-Few); Nitrite,Urine Negative (Negative); Protein,Urine 70 mg/dL (Neg-Trace); RBC,Urine TNTC per hpf (0-3); Specific Gravity,Urine 1.027 (1.010-1.025); Squamous Epithelial Cell,Urine Few per hpf (None-Few)
[2020-08-03] MEDS: Gabapentin 300 MG CAPSULE PO SCH (20:26)
[2020-08-04] MEDS: Artificial Tears SOLN 15 ML BOTTLE BOTH EYES SCH ×3 (00:09→20:35)
[2020-08-04] MEDS: Ipratropium/Albuterol Neb 3 ML IH SCH ×6 (03:46→23:21)
[2020-08-04 05:09] LABS: Basophils % 0.6 %; Eosinophils % 0.2 %; Hemoglobin 15.6 g/dL (12.9-16.9)
[2020-08-04 05:12] LABS: Basophils # 0.1 K/mcL (0.0-0.2); Immature Granulocytes % 2.2 % (0-4); Immature Platelets 7.1 % (1.1-6.1); Lymphocytes # 1.1 K/mcL (0.6-4.6); Lymphocytes % 11.2 %; Mean Corpuscular HGB Conc 33.2 g/dL (31.6-35.5); Mean Corpuscular Hemoglobin 30.5 pg (28.0-33.3); Mean Platelet Volume 10.4 fL (9.4-12.4); Monocytes # 0.7 K/mcL (0.0-1.3); Monocytes % 6.8 %; Neutrophils # 7.7 K/mcL (1.6-8.9); Platelet Count 112 K/mcL (140-400); Red Blood Count 5.11 M/mcL (4.19-5.50); Red Cell Distribution Width 13.5 % (11.5-14.5); White Blood Count 9.8 K/mcL (4.3-11.1)
[2020-08-04 05:28] LABS: BUN/Creatinine Ratio 34 (6-26); Blood Urea Nitrogen 31 mg/dL (8-23); Calcium 8.8 mg/dL (8.6-10.3); Carbon Dioxide 36 mEq/L (23-29); Chloride 91 mEq/L (98-107); Glucose 98 mg/dL (70-105); Osmolality,Calculated 273 (280-300); Potassium 5.3 mEq/L (3.5-5.1); Sodium 128 mEq/L (136-145); eGFR For African Americans > 60 (> 60); eGFR For Non-African Americans > 60 (> 60)
[2020-08-04] MEDS: Budesonide/Formoterol 160/4.5 1 PUFF INH IH SCH ×2 (07:30→19:51)
[2020-08-04] MEDS: Multivit/Ca/Min/Fe/FA 1 TAB TABLET PO SCH (07:57)
[2020-08-04] MEDS: Mirtazapine 15 MG TABLET PO SCH (07:58)
[2020-08-04] MEDS: predniSONE 20 MG TABLET PO SCH (07:58)
[2020-08-04] MEDS: Primidone 50 MG TABLET PO SCH (07:58)
[2020-08-04] MEDS: Gabapentin 300 MG CAPSULE PO SCH ×2 (07:58→20:32)
[2020-08-04] MEDS: NITROGLYCERIN 0.6 MG TD SCH (07:58)
[2020-08-04] MEDS: Spironolactone 25 MG TABLET PO SCH (08:01)
[2020-08-04] MEDS: Azithromycin 250 MG TABLET PO SCH (08:02)
[2020-08-04] MEDS: Benzonatate 100 MG CAPSULE PO PRN (20:32)
[2020-08-04] MEDS: *HR* LORazepam Oral Conc 2 MG/ML SL PRN (22:00)
[2020-08-05 01:18] LABS: Basophils # 0.1 K/mcL (0.0-0.2); Basophils % 0.4 %; Hematocrit 47.2 % (37.5-50.1); Hemoglobin 15.8 g/dL (12.9-16.9); Immature Granulocytes % 1.6 % (0-4); Lymphocytes # 1.1 K/mcL (0.6-4.6); Lymphocytes % 8.4 %; Mean Corpuscular HGB Conc 33.5 g/dL (31.6-35.5); Mean Corpuscular Hemoglobin 30.3 pg (28.0-33.3); Mean Corpuscular Volume 90.4 fL (83.0-100.0); Mean Platelet Volume 10.5 fL (9.4-12.4); Monocytes # 0.7 K/mcL (0.0-1.3); Monocytes % 5.6 %; Neutrophils # 10.8 K/mcL (1.6-8.9); Platelet Count 127 K/mcL (140-400); Red Blood Count 5.22 M/mcL (4.19-5.50); Red Cell Distribution Width 13.4 % (11.5-14.5); White Blood Count 12.8 K/mcL (4.3-11.1)
[2020-08-05 02:25] LABS: BUN/Creatinine Ratio 35 (6-26); Blood Urea Nitrogen 28 mg/dL (8-23); Calcium 8.7 mg/dL (8.6-10.3); Carbon Dioxide 33 mEq/L (23-29); Chloride 91 mEq/L (98-107); Glucose 96 mg/dL (70-105); Osmolality,Calculated 271 (280-300); Potassium 5.1 mEq/L (3.5-5.1); Sodium 128 mEq/L (136-145); eGFR For African Americans > 60 (> 60); eGFR For Non-African Americans > 60 (> 60)
[2020-08-05] MEDS: Ipratropium/Albuterol Neb 3 ML IH SCH ×5 (03:38→19:31)
[2020-08-05] MEDS ORDERED: Furosemide 40 MG/4 ML VIAL IVP ONE (03:53)
[2020-08-05] MEDS: Mirtazapine 15 MG TABLET PO SCH (07:46)
[2020-08-05] MEDS: Gabapentin 300 MG CAPSULE PO SCH ×2 (07:47→20:12)
[2020-08-05] MEDS: Multivit/Ca/Min/Fe/FA 1 TAB TABLET PO SCH (07:48)
[2020-08-05] MEDS: Azithromycin 250 MG TABLET PO SCH (07:48)
[2020-08-05] MEDS: Primidone 50 MG TABLET PO SCH (07:49)
[2020-08-05] MEDS: predniSONE 20 MG TABLET PO SCH (07:49)
[2020-08-05] MEDS: Budesonide/Formoterol 160/4.5 1 PUFF INH IH SCH ×2 (07:55→19:31)
[2020-08-05] MEDS: NITROGLYCERIN 0.6 MG TD SCH (08:01)
[2020-08-05] MEDS: Spironolactone 12.5 MG TABLET PO SCH (08:03)
[2020-08-05] MEDS: Artificial Tears SOLN 15 ML BOTTLE BOTH EYES SCH ×2 (12:35→20:12)
[2020-08-06] MEDS: Ipratropium/Albuterol Neb 3 ML IH SCH ×7 (00:01→22:49)
[2020-08-06 02:27] LABS: Hematocrit 45.3 % (37.5-50.1); Hemoglobin 15.3 g/dL (12.9-16.9); Mean Corpuscular HGB Conc 33.8 g/dL (31.6-35.5); Mean Corpuscular Hemoglobin 30.4 pg (28.0-33.3); Mean Corpuscular Volume 90.1 fL (83.0-100.0); Mean Platelet Volume 10.5 fL (9.4-12.4); Platelet Count 113 K/mcL (140-400); Red Blood Count 5.03 M/mcL (4.19-5.50); Red Cell Distribution Width 13.6 % (11.5-14.5); White Blood Count 14.1 K/mcL (4.3-11.1)
[2020-08-06 02:47] LABS: BUN/Creatinine Ratio 34 (6-26); Blood Urea Nitrogen 30 mg/dL (8-23); Calcium 8.6 mg/dL (8.6-10.3); Carbon Dioxide 36 mEq/L (23-29); Chloride 91 mEq/L (98-107); Glucose 124 mg/dL (70-105); Osmolality,Calculated 278 (280-300); Potassium 4.6 mEq/L (3.5-5.1); Sodium 130 mEq/L (136-145); eGFR For African Americans > 60 (> 60); eGFR For Non-African Americans > 60 (> 60)
[2020-08-06] MEDS ORDERED: Morphine Sulfate 2 MG/ML SYRINGE IVP ONE (06:12)
[2020-08-06] MEDS ORDERED: *HR* HYDROmorphone (PF) 1 MG/ML SYRINGE IVP ONE (06:17)
[2020-08-06] MEDS: *HR* LORazepam Oral Conc 2 MG/ML SL PRN ×2 (07:26→21:40)
[2020-08-06] MEDS: Gabapentin 300 MG CAPSULE PO SCH ×2 (07:26→19:50)
[2020-08-06] MEDS: Multivit/Ca/Min/Fe/FA 1 TAB TABLET PO SCH (07:28)
[2020-08-06] MEDS: Mirtazapine 15 MG TABLET PO SCH (07:28)
[2020-08-06] MEDS: Primidone 50 MG TABLET PO SCH (07:29)
[2020-08-06] MEDS: Spironolactone 12.5 MG TABLET PO SCH (07:29)
[2020-08-06] MEDS: NITROGLYCERIN 0.6 MG TD SCH (07:31)
[2020-08-06] MEDS: Artificial Tears SOLN 15 ML BOTTLE BOTH EYES SCH ×2 (07:38→19:50)
[2020-08-06] MEDS: Budesonide/Formoterol 160/4.5 1 PUFF INH IH SCH ×2 (07:57→20:11)
[2020-08-06] MEDS: Furosemide 40 MG/4 ML VIAL IVP SCH (07:58)
[2020-08-06] MEDS: Piperacillin/Tazobactam 3.375 GM in 0.9 % Sodium Chloride Mini Bag 100 ML IVPB SCH ×3 (07:59→23:20)
[2020-08-06] MEDS ORDERED: Vancomycin 1,250 MG/262.5 ML IV.SOLN IVPB ONE (08:06)
[2020-08-06] MEDS ORDERED: Furosemide 40 MG/4 ML VIAL IVP SCH (09:00)
[2020-08-06] MEDS ORDERED: Isovue-370 500 ML BOTTLE IVP ONE (12:53)
[2020-08-06] MEDS: Vancomycin 1,250 MG/262.5 ML IV.SOLN IVPB SCH (21:37)
[2020-08-07] MEDS: Ipratropium/Albuterol Neb 3 ML IH SCH ×6 (03:48→23:06)
[2020-08-07 05:25] LABS: Hematocrit 44.6 % (37.5-50.1); Hemoglobin 14.7 g/dL (12.9-16.9); Immature Platelets 5.3 % (1.1-6.1); Mean Corpuscular Hemoglobin 30.3 pg (28.0-33.3); Mean Platelet Volume 10.8 fL (9.4-12.4); Red Blood Count 4.85 M/mcL (4.19-5.50); Red Cell Distribution Width 13.8 % (11.5-14.5); White Blood Count 10.4 K/mcL (4.3-11.1)
[2020-08-07 05:43] LABS: BUN/Creatinine Ratio 29 (6-26); Blood Urea Nitrogen 26 mg/dL (8-23); Calcium 8.3 mg/dL (8.6-10.3); Carbon Dioxide 36 mEq/L (23-29); Chloride 93 mEq/L (98-107); Glucose 94 mg/dL (70-105); Osmolality,Calculated 283 (280-300); Potassium 4.1 mEq/L (3.5-5.1); Sodium 134 mEq/L (136-145); eGFR For African Americans > 60 (> 60); eGFR For Non-African Americans > 60 (> 60)
[2020-08-07] MEDS: Budesonide/Formoterol 160/4.5 1 PUFF INH IH SCH ×2 (07:24→23:06)
[2020-08-07] MEDS: Piperacillin/Tazobactam 3.375 GM in 0.9 % Sodium Chloride Mini Bag 100 ML IVPB SCH ×2 (09:30→18:43)
[2020-08-07] MEDS: Multivit/Ca/Min/Fe/FA 1 TAB TABLET PO SCH (09:35)
[2020-08-07] MEDS: Mirtazapine 15 MG TABLET PO SCH (09:35)
[2020-08-07] MEDS: Primidone 50 MG TABLET PO SCH (09:35)
[2020-08-07] MEDS: Gabapentin 300 MG CAPSULE PO SCH ×2 (09:35→21:10)
[2020-08-07] MEDS: Spironolactone 12.5 MG TABLET PO SCH (09:35)
[2020-08-07] MEDS: Furosemide 40 MG/4 ML VIAL IVP SCH (09:44)
[2020-08-07] MEDS: NITROGLYCERIN 0.6 MG TD SCH (09:44)
[2020-08-07] MEDS ORDERED: E-Z-HD (BARIUM SULF) SUSPENSION PO ONE (10:30)
[2020-08-07] MEDS ORDERED: E-Z-PAQUE (BARIUM SULF) SUSP 1 BOTTLE PO ONE (10:30)
[2020-08-07] MEDS: *HR* LORazepam Oral Conc 2 MG/ML SL PRN ×2 (10:44→21:11)
[2020-08-07] MEDS: Artificial Tears SOLN 15 ML BOTTLE BOTH EYES SCH ×2 (13:05→21:10)
[2020-08-07] MEDS: Vancomycin 1,250 MG/262.5 ML IV.SOLN IVPB SCH ×3 (15:55→22:45)
[2020-08-08] MEDS: Piperacillin/Tazobactam 3.375 GM in 0.9 % Sodium Chloride Mini Bag 100 ML IVPB SCH ×2 (00:03→10:25)
[2020-08-08 02:13] LABS: Hematocrit 49.4 % (37.5-50.1); Mean Corpuscular HGB Conc 32.4 g/dL (31.6-35.5); Mean Corpuscular Hemoglobin 30.8 pg (28.0-33.3); Mean Platelet Volume 10.2 fL (9.4-12.4); Red Cell Distribution Width 13.7 % (11.5-14.5); White Blood Count 9.4 K/mcL (4.3-11.1)
[2020-08-08 02:14] LABS: Basophils % 0.3 %; Eosinophils # 0.1 K/mcL (0.0-0.6); Eosinophils % 0.6 %; Hematocrit 48.4 % (37.5-50.1); Immature Granulocytes % 1.2 % (0-4); Lymphocytes # 1.3 K/mcL (0.6-4.6); Lymphocytes % 13.2 %; Mean Corpuscular HGB Conc 33.1 g/dL (31.6-35.5); Mean Corpuscular Hemoglobin 31.1 pg (28.0-33.3); Mean Platelet Volume 10.8 fL (9.4-12.4); Monocytes # 0.6 K/mcL (0.0-1.3); Monocytes % 6.1 %; Platelet Count 90 K/mcL (140-400); Red Blood Count 5.15 M/mcL (4.19-5.50); Red Cell Distribution Width 13.7 % (11.5-14.5); Segmented Neutrophils % 78.6 %; White Blood Count 9.6 K/mcL (4.3-11.1)
[2020-08-08 02:16] LABS: Neutrophils # 7.6 K/mcL (1.6-8.9); Platelet Count 99 K/mcL (140-400)
[2020-08-08 03:09] LABS: BUN/Creatinine Ratio 43 (6-26); Blood Urea Nitrogen 32 mg/dL (8-23); Calcium 8.4 mg/dL (8.6-10.3); Carbon Dioxide 30 mEq/L (23-29); Chloride 94 mEq/L (98-107); Glucose 125 mg/dL (70-105); Osmolality,Calculated 284 (280-300); Potassium 4.1 mEq/L (3.5-5.1); Sodium 133 mEq/L (136-145); eGFR For African Americans > 60 (> 60); eGFR For Non-African Americans > 60 (> 60)
[2020-08-08] MEDS: Ipratropium/Albuterol Neb 3 ML IH SCH ×4 (03:41→15:55)
[2020-08-08] MEDS: Budesonide/Formoterol 160/4.5 1 PUFF INH IH SCH (07:27)
[2020-08-08] MEDS: NITROGLYCERIN 0.6 MG TD SCH (10:22)
[2020-08-08] MEDS: Gabapentin 300 MG CAPSULE PO SCH (10:23)
[2020-08-08] MEDS: Spironolactone 12.5 MG TABLET PO SCH (10:23)
[2020-08-08] MEDS: Multivit/Ca/Min/Fe/FA 1 TAB TABLET PO SCH (10:23)
[2020-08-08] MEDS: Mirtazapine 15 MG TABLET PO SCH (10:23)
[2020-08-08] MEDS: Primidone 50 MG TABLET PO SCH (10:24)
[2020-08-08] MEDS: Furosemide 40 MG/4 ML VIAL IVP SCH (10:24)
[2020-08-08 11:11] VITALS: BP 120/75
[2020-08-08] MEDS: *HR* LORazepam Oral Conc 2 MG/ML SL PRN (11:39)
== END 2020-08-08 17:35 | disposition hospice, inpatient (51) | DRG 871 ==
LOC: SUATTDRO → EMEROOARM 15:28 → 2NENU 15:28 → SUATTDRO 17:52 → 2NENU 19:44 → SUATTDRO 08-02 17:03
PROVIDERS: ADMIT Internal Medicine; ATTEND Internal Medicine